=== PATIENT | male | born 1990 | race Caucasian/White ===

== ENCOUNTER 2017-08-23 10:09 | Inpatient (IN) | payer OTHER ==
[2017-08-23 11:13] VITALS: BMI 30.3
--- NOTE | 2017-08-23 11:57 | HP ---
CIWA Score - CIWA Score Nausea/Vomitin-Mild Nausea/No Vomiting Muscle Tremors: 4-Moderate,w/Arms Extend Anxiety: 4-Mod. Anxious/Guarded Agitation: 1-Slight > Activity Paroxysmal Sweats: 1-Minimal Palms Moist Orientation: 0-Oriented Tacttile Disturbances: 1-Very Mild Itch/Numbness Auditory Disturbances: 1-Very Mild Visual Disturbances: 1-Very Mild Sensitivity Headache: 1-Very Mild CIWA-Ar Total Score: 15 Admission ROS BHS - HPI Chief Complaint: I want to stop, I need help Allergies/Adverse Reactions: Allergies Allergy/AdvReac Type Severity Reaction Status Date / Time aspirin Allergy Intermediate Swelling Verified 08/23/17 12:01 ibuprofen [From Motrin] Allergy Intermediate Swelling Verified 08/23/17 12:01 History of Present Illness: 27 yo gentleman here for detox from alcohol, also using PCP, cocaine and cannabis. Denies seizures. Last detox two months ago at [facility]. Exam Limitations: Clinical Condition - Ebola screening Have you traveled outside of the country in the last 21 days: No Have you had contact with anyone from an Ebola affected area: No Have you been sick,other than usual withdrawal symptoms: No Do you have a fever: No - Review of Systems Constitutional: Loss of Appetite, Changes in sleep EENT: reports: Blurred Vision Respiratory: reports: No Symptoms reported Cardiac: reports: No Symptoms Reported GI: reports: Nausea, Indigestion : reports: Frequency Musculoskeletal: reports: No Symptoms Reported Integumentary: reports: No Symptoms Reported Neuro: reports: Headache Endocrine: reports: No Symptoms Reported Hematology: reports: No Symptoms Reported Psychiatric: reports: Judgement Intact, Mood/Affect Appropiate, Orientated x3, Anxious Other Systems: Reviewed and Negative Patient History - Patient Surgical History Past Surgical History: No - PPD History Previous Implant?: Yes Documented Results: Negative w/o proof PPD to be Administered?: Yes - Reproductive History Patient is a Female of Child Bearing Age (11 -55 yrs old): No (male) - Smoking Cessation Smoking history: Current every day smoker Have you smoked in the past 12 months: Yes Aproximately how many cigarettes per day: 10 Initiated information on smoking cessation: Yes 'Breaking Loose' booklet given: 08/23/17 - Substance & Tx. History Hx Alcohol Use: Yes Hx Substance Use: Yes Substance Use Type: Alcohol, Cocaine Hx Substance Use Treatment: Yes (detox, rehab) - Substances Abused Alcohol Route: Oral Frequency: Daily Amount used: liquor- 5 pints, beer- 2 six packs Age of first use: 12 Date of Last Use: 08/22/17 PCP Route: Smoking Frequency: Daily Amount used: 5 bags Age of first use: 16 Date of Last Use: 08/22/17 Cocaine Route: Inhalation Amount used: 1 bags Age of first use: 16 Date of Last Use: 08/22/17 Marijuana/Hashish Route: Smoking Frequency: Daily Amount used: 4 bags Age of first use: 16 Date of Last Use: 08/22/17 Family Disease History - Family Disease History Family Disease History: Diabetes: Mother (lviing - etoh), CA: Father (living - hx etoh), Other: Father, Mother, Brother (half brothers - etoh), Sister (two - healthy), Daughter (age 1 ) Admission Physical Exam [facility] - Vital Signs Vital Signs: Vital Signs - 24 hr 08/23/17 11:10 Temperature 97.4 F L Pulse Rate 83 Respiratory 20 Rate Blood Pressure 128/72 - Physical General Appearance: Yes: Nourished, Appropriately Dressed, Mild Distress, Anxious HEENTM: Yes: EOMI, Hearing grossly Normal, Normocephalic, Normal Voice, Pharynx Normal Respiratory: Yes: Normal Breath Sounds, No Respiratory Distress Neck: Yes: No masses,lesions,Nodules, Supple Breast: Yes: Breast Exam Deferred Cardiology: Yes: Regular Rhythm, Regular Rate Abdominal: Yes: Flat, Soft Genitourinary: Yes: Frequency Back: Yes: Normal Inspection Musculoskeletal: Yes: full range of Motion, Gait Steady Extremities: Yes: Normal Inspection, Normal Range of Motion Neurological: Yes: Fully Oriented, Alert, Motor Strength 5/5, Normal Mood/Affect , Normal Response Integumentary: Yes: Normal Color, Warm Lymphatic: Yes: Within Normal Limits - Diagnostic (1) Alcohol dependence with uncomplicated withdrawal Current Visit: Yes Status: Chronic (2) Cannabis dependence Current Visit: Yes Status: Chronic (3) PCP dependence Current Visit: Yes Status: Chronic (4) Cocaine dependence Current Visit: Yes Status: Chronic Qualifiers: Substance use status: uncomplicated Qualified Code(s): F14.20 - Cocaine dependence, uncomplicated (5) Nicotine dependence Current Visit: Yes Status: Chronic Qualifiers: Nicotine product type: cigarettes Substance use status: uncomplicated Qualified Code(s): F17.210 - Nicotine dependence, cigarettes, uncomplicated (6) Asthma Current Visit: Yes Status: Chronic Qualifiers: Asthma severity: mild Asthma persistence: intermittent Asthma complication type: uncomplicated Qualified Code(s): J45.20 - Mild intermittent asthma, uncomplicated Cleared for Admission BHS - Detox or Rehab S Level of Care: Medically Managed Detox Regimen/Protocol: Librium S Breath Alcohol Content Breath Alcohol Content: 0 Urine Drug Screen - Results Drug Screen Negative: No Urine Drug Screen Results: CASANDRA-Cocaine, PCP-Phencyclidine, TCA-Tricyclic Antidepress
[2017-08-23] MEDS ORDERED: MAGNESIUM HYDROX 2400MG/30ML ORAL SUSPENSION 30 ML CUP PO PRN (12:06)
[2017-08-23] MEDS ORDERED: MAG HYDROX/AL HYDROX/SIMETH 30 ML UNIT-DOSE CUP PO PRN (12:06)
[2017-08-23] MEDS ORDERED: guaiFENesin/D-METHORPHAN HB 10 ML UNIT-DOSE CUPS PO PRN (12:06)
[2017-08-23] MEDS ORDERED: ACETAMINOPHEN 325 MG TABLET (FP) PO PRN (12:06)
[2017-08-23] MEDS ORDERED: LOPERAMIDE HCL 2 MG CAPSULE PO PRN (12:06)
[2017-08-23] MEDS ORDERED: MENTHOL/PHENOL 1 EACH UD MM PRN (12:06)
[2017-08-23] MEDS ORDERED: hydrOXYzine PAMOATE 50 MG CAPSULE (FP) PO PRN (12:06)
[2017-08-23] MEDS ORDERED: MAGNESIUM CITRATE 300 ML BOTTLE PO PRN (12:06)
[2017-08-23] MEDS ORDERED: chlordiazePOXIDE HCL 25 MG CAPSULE PO PRN (12:06)
[2017-08-23] MEDS ORDERED: P-EPHED 60MG/TRIPROLIDI 2.5MG TABLET PO PRN (12:06)
[2017-08-23] MEDS ORDERED: ALBUTEROL SO4 18 GM HFA INHALER IH PRN (12:08)
[2017-08-23] MEDS ORDERED: chlordiazePOXIDE HCL 25 MG CAPSULE PO ONE (13:00)
[2017-08-23] MEDS: NICOTINE 21 MG/24 HOURS TOPICAL PATCH TD SCH (13:52)
[2017-08-23] MEDS: chlordiazePOXIDE HCL 25 MG CAPSULE PO SCH ×2 (17:27→22:44)
[2017-08-23 19:45] LABS: URINE APPEARANCE CLEAR; URINE BILIRUBIN NEGATIVE (NEGATIVE); URINE BLOOD NEGATIVE (NEGATIVE); URINE COLOR YELLOW; URINE GLUCOSE (UA) NEGATIVE (NEGATIVE); URINE KETONE NEGATIVE (NEGATIVE); URINE NITRITE NEGATIVE (NEGATIVE); URINE PROTEIN NEGATIVE (NEGATIVE); URINE UROBILINOGEN NEGATIVE mg/dL (0.2-1.0)
[2017-08-23 21:37] LABS: URINE LEUK ESTERASE Negative (NEGATIVE)
[2017-08-23] MEDS: THIAMINE HCL 100 MG TABLET (FP) PO SCH (22:44)
[2017-08-24] MEDS: chlordiazePOXIDE HCL 25 MG CAPSULE PO SCH ×4 (06:16→22:13)
--- NOTE | 2017-08-24 07:49 | CONSULT ---
[facility] Psychiatric Consult - Data Date of interview: 08/24/17 Admission source: [facility] Identifying data: Mr Leavitt is a 27 years old male, father of one year old daughter, unemployed with no source of income, domiciled living with his mother Substance Abuse History: Reports history of alcohol, cocaine, marijuana and pcp use. Refer to addiction counselor's note for further information Medical History: Significant for bronchial asthma and hyperlipidemia. Smokes 10 cigarettes daily Psychiatric History: Reports that his first psychiatric contact was in 2012 [address] he was admitted to [facility] where he was brought for pcp intoxication. Claims he was diagnosed with Bipolar Disorder and prescribed medications. He currently receives outpatient psychiatric treatment at [facility] under the care of Dr Esteban and he is prescribed Gabapentin 300 mg po TID, Trileptal 300 mg po daily and Seroquel 200 mg po HS. Denies history of suicidal attempt. At present, reports feeling well but sleeping poorly without medication Physical/Sexual Abuse/Trauma History: Denies history of verbal, physical or sexual abuse as well as DV relationship Additional Comment: Reports history of few misdemeanor arrests on charges of trespassing and possession of marijuana Mental Status Exam - Mental Status Exam Alert and Oriented to: Place, Person Cognitive Function: Fair Patient Appearance: Well Groomed Mood: Hopeful, Euthymic Patient Behavior: Cooperative Speech Pattern: Clear Voice Loudness: Normal Thought Process: Intact, Goal Oriented Hallucinations: Denies Suicidal Ideation: Denies Homicidal Ideation: Denies Insight/Judgement: Poor Sleep: Poorly Appetite: Good Muscle strength/Tone: Normal Gait/Station: Normal Psychiatric Findings - Problem List ([place] 1, 2,3) (1) Bipolar disorder Current Visit: Yes Status: Acute (2) Alcohol dependence with uncomplicated withdrawal Current Visit: Yes Status: Chronic (3) Cocaine dependence Current Visit: Yes Status: Chronic Qualifiers: Substance use status: uncomplicated Qualified Code(s): F14.20 - Cocaine dependence, uncomplicated (4) Cannabis dependence Current Visit: Yes Status: Chronic (5) Phencyclidine dependence Current Visit: Yes Status: Acute (6) Nicotine dependence Current Visit: Yes Status: Chronic Qualifiers: Nicotine product type: cigarettes Substance use status: uncomplicated Qualified Code(s): F17.210 - Nicotine dependence, cigarettes, uncomplicated (7) Asthma Current Visit: Yes Status: Chronic Qualifiers: Asthma severity: mild Asthma persistence: intermittent Asthma complication type: uncomplicated Qualified Code(s): J45.20 - Mild intermittent asthma, uncomplicated (8) HLD (hyperlipidemia) Current Visit: Yes Status: Acute - Initial Treatment Plan Initial Treatment Plan: 1) Continue Gabapentin 300 mg po TID, Trileptal 300 mg po daily and Seroquel 200 mg po HS. 2) Continue inpatient detoxification
[2017-08-24] MEDS ORDERED: OXcarbazepine 300 MG/5 ML 250 ML BULK BOTTLE PO SCH (10:00)
[2017-08-24] MEDS: PRENATAL VITAMINS W/ FOLIC ACID TABLET (FP) PO SCH (10:10)
[2017-08-24] MEDS: NICOTINE 21 MG/24 HOURS TOPICAL PATCH TD SCH (10:11)
[2017-08-24 10:30] LABS: MCH 29.1 pg (25.7-33.7); MEAN CELL VOLUME 88.4 fl (80-96); MEAN PLT VOLUME 9.3 fl (7.5-11.1); PLATELET COUNT 236 K/MM3 (134-434); RDW 14.2 % (11.9-15.9); WHITE BLOOD COUNT 6.3 K/mm3 (4.0-10.0)
[2017-08-24 10:42] LABS: ALBUMIN 2.7 g/dl (3.4-5.0); ANION GAP 4 (8-16); CALCIUM 7.8 mg/dL (8.5-10.1); CO2 31 mmol/L (21-32); GLUCOSE,RANDOM 79 mg/dL (74-106); SGOT/AST 26 U/L (15-37); SGPT/ALT 47 U/L (12-78)
[2017-08-24 10:43] LABS: ALK PHOS 71 U/L (45-117); BILIRUBIN,TOTAL 0.4 mg/dL (0.2-1.0); TOT PROT 6.4 g/dl (6.4-8.2)
[2017-08-24 11:00] LABS: HIV 1 & 2 AB NEGATIVE; HIV 1 AGp24 NEGATIVE
[2017-08-24] MEDS: GABAPENTIN 300 MG CAPSULE (FP) PO SCH ×2 (14:34→22:13)
[2017-08-24] MEDS: OXcarbazepine 300 MG TABLET (UD) PO SCH (14:34)
--- NOTE | 2017-08-24 16:47 | PN ---
S CIWA - CIWA Score Nausea/Vomitin Muscle Tremors: 4-Moderate,w/Arms Extend Anxiety: 4-Mod. Anxious/Guarded Agitation: 4-Moderately Restless Paroxysmal Sweats: 3 Orientation: 0-Oriented Tacttile Disturbances: 1-Very Mild Itch/Numbness Auditory Disturbances: 0-None Visual Disturbances: 0-None Headache: 1-Very Mild CIWA-Ar Total Score: 20 BHS Progress Note (SOAP) Subjective: Tremor, chills, sweating Objective: 08/24/17 16:47 Last Vital Signs Temp Pulse Resp BP Pulse Ox 96.8 F L 85 18 118/69 08/24/17 14:44 08/24/17 14:44 08/24/17 14:44 08/24/17 14:44 Laboratory Tests 08/23/17 08/24/17 08/24/17 16:10 07:15 07:15 WBC 6.3 RBC 5.56 Hgb 16.2 Hct 49.2 H MCV 88.4 MCH 29.1 MCHC 33.0 RDW 14.2 Plt Count 236 MPV 9.3 Sodium Potassium Chloride Carbon Dioxide Anion Gap BUN Creatinine Creat Clearance w eGFR Random Glucose Calcium Total Bilirubin AST ALT Alkaline Phosphatase Total Protein Albumin Urine Color Yellow Urine Appearance Clear Urine pH 5.0 Ur Specific [place] 1.019 Urine Protein Negative Urine Glucose (UA) Negative Urine Ketones Negative Urine Blood Negative Urine Nitrite Negative Urine Bilirubin Negative Urine Urobilinogen Negative Ur Leukocyte Esterase Negative RPR Titer HIV 1&2 Antibody Screen Negative HIV P24 Antigen Negative 08/24/17 08/24/17 07:15 07:15 WBC RBC Hgb Hct MCV MCH MCHC RDW Plt Count MPV Sodium 141 Potassium 4.1 Chloride 106 Carbon Dioxide 31 Anion Gap 4 L BUN 12 Creatinine 1.0 Creat Clearance w eGFR > 60 Random Glucose 79 Calcium 7.8 L Total Bilirubin 0.4 AST 26 ALT 47 Alkaline Phosphatase 71 Total Protein 6.4 Albumin 2.7 L Urine Color Urine Appearance Urine pH Ur Specific [place] Urine Protein Urine Glucose (UA) Urine Ketones Urine Blood Urine Nitrite Urine Bilirubin Urine Urobilinogen Ur Leukocyte Esterase RPR Titer Nonreactive HIV 1&2 Antibody Screen HIV P24 Antigen Labs noted Assessment: 08/24/17 16:49 Withdrawal symptoms Plan: Continue detox Encouraged to drink lots of water
[2017-08-24] MEDS: THIAMINE HCL 100 MG TABLET (FP) PO SCH (22:12)
[2017-08-24] MEDS: QUEtiapine FUMARATE 200 MG TABLET PO SCH (22:13)
[2017-08-25] MEDS: GABAPENTIN 300 MG CAPSULE (FP) PO SCH ×3 (06:04→22:11)
[2017-08-25] MEDS: chlordiazePOXIDE HCL 25 MG CAPSULE PO SCH ×2 (06:05→10:15)
--- NOTE | 2017-08-25 09:30 | EKG ---
Test Reason : Blood Pressure : / mmHG Vent. Rate : 070 BPM Atrial Rate : 070 BPM P-R Int : 172 ms QRS Dur : 102 ms QT Int : 392 ms P-R-T Axes : 059 079 065 degrees QTc Int : 423 ms NORMAL SINUS RHYTHM NORMAL ECG NO PREVIOUS ECGS AVAILABLE Confirmed by ALAYNA DIOR, DEBORA ([id number]) on 08/25/2017 9:30:30 AM Referred By: KARRIE FINE Confirmed By:DEBORA CATALAN MD
[2017-08-25] MEDS: PRENATAL VITAMINS W/ FOLIC ACID TABLET (FP) PO SCH (10:15)
[2017-08-25] MEDS: NICOTINE 21 MG/24 HOURS TOPICAL PATCH TD SCH (10:15)
[2017-08-25] MEDS: OXcarbazepine 300 MG TABLET (UD) PO SCH (10:34)
--- NOTE | 2017-08-25 10:48 | PN ---
[facility] CIWA - CIWA Score Nausea/Vomitin-No Nausea/No Vomiting Muscle Tremors: 3 Anxiety: 4-Mod. Anxious/Guarded Agitation: 4-Moderately Restless Paroxysmal Sweats: 1-Minimal Palms Moist Orientation: 0-Oriented Tacttile Disturbances: 0-None Auditory Disturbances: 0-None Visual Disturbances: 0-None Headache: 0-None Present CIWA-Ar Total Score: 12 BHS Progress Note (SOAP) Subjective: ANXIETY,SWEATS. ALERT O X 3. OOB. NAD. Objective: 08/25/17 10:47 Vital Signs Temperature 96.9 F L 08/25/17 09:23 Pulse Rate 103 H 08/25/17 09:23 Respiratory Rate 18 08/25/17 09:23 Blood Pressure 121/76 08/25/17 09:23 O2 Sat by Pulse Oximetry (%) Laboratory Last Values WBC 6.3 K/mm3 (4.0-10.0) 08/24/17 07:15 RBC 5.56 M/mm3 (4.00-5.60) 08/24/17 07:15 Hgb 16.2 GM/dL (11.7-16.9) 08/24/17 07:15 Hct 49.2 % (35.4-49) H 08/24/17 07:15 MCV 88.4 fl (80-96) 08/24/17 07:15 MCH 29.1 pg (25.7-33.7) 08/24/17 07:15 MCHC 33.0 g/dl (32.0-35.9) 08/24/17 07:15 RDW 14.2 % (11.9-15.9) 08/24/17 07:15 Plt Count 236 K/MM3 (134-434) 08/24/17 07:15 MPV 9.3 fl (7.5-11.1) 08/24/17 07:15 Sodium 141 mmol/L (136-145) 08/24/17 07:15 Potassium 4.1 mmol/L (3.5-5.1) 08/24/17 07:15 Chloride 106 mmol/L (98-107) 08/24/17 07:15 Carbon Dioxide 31 mmol/L (21-32) 08/24/17 07:15 Anion Gap 4 (8-16) L 08/24/17 07:15 BUN 12 mg/dL (7-18) 08/24/17 07:15 Creatinine 1.0 mg/dL (0.7-1.3) 08/24/17 07:15 Creat Clearance w eGFR > 60 (>60) 08/24/17 07:15 Random Glucose 79 mg/dL (74-106) 08/24/17 07:15 Calcium 7.8 mg/dL (8.5-10.1) L 08/24/17 07:15 Total Bilirubin 0.4 mg/dL (0.2-1.0) 08/24/17 07:15 AST 26 U/L (15-37) 08/24/17 07:15 ALT 47 U/L (12-78) 08/24/17 07:15 Alkaline Phosphatase 71 U/L (45-117) 08/24/17 07:15 Total Protein 6.4 g/dl (6.4-8.2) 08/24/17 07:15 Albumin 2.7 g/dl (3.4-5.0) L 08/24/17 07:15 Urine Color Yellow 08/23/17 16:10 Urine Appearance Clear 08/23/17 16:10 Urine pH 5.0 (5.0-8.0) 08/23/17 16:10 Ur Specific [place] 1.019 (1.001-1.035) 08/23/17 16:10 Urine Protein Negative (NEGATIVE) 08/23/17 16:10 Urine Glucose (UA) Negative (NEGATIVE) 08/23/17 16:10 Urine Ketones Negative (NEGATIVE) 08/23/17 16:10 Urine Blood Negative (NEGATIVE) 08/23/17 16:10 Urine Nitrite Negative (NEGATIVE) 08/23/17 16:10 Urine Bilirubin Negative (NEGATIVE) 08/23/17 16:10 Urine Urobilinogen Negative mg/dL (0.2-1.0) 08/23/17 16:10 Ur Leukocyte Esterase Negative (NEGATIVE) 08/23/17 16:10 RPR Titer Nonreactive (NONREACTIVE) 08/24/17 07:15 HIV 1&2 Antibody Screen Negative 08/24/17 07:15 HIV P24 Antigen Negative 08/24/17 07:15 Assessment: 08/25/17 10:47 WITHDRAWAL SX Plan: CONTINUE DETOX
[2017-08-25] MEDS: chlordiazePOXIDE 5 MG CAPSULE PO SCH ×2 (17:22→22:11)
[2017-08-25] MEDS: THIAMINE HCL 100 MG TABLET (FP) PO SCH (22:11)
[2017-08-25] MEDS: QUEtiapine FUMARATE 200 MG TABLET PO SCH (22:11)
[2017-08-26] MEDS: chlordiazePOXIDE 5 MG CAPSULE PO SCH ×2 (05:43→10:18)
[2017-08-26] MEDS: GABAPENTIN 300 MG CAPSULE (FP) PO SCH ×3 (05:43→22:15)
[2017-08-26] MEDS: NICOTINE 21 MG/24 HOURS TOPICAL PATCH TD SCH (10:18)
[2017-08-26] MEDS: OXcarbazepine 300 MG TABLET (UD) PO SCH (10:18)
[2017-08-26] MEDS: PRENATAL VITAMINS W/ FOLIC ACID TABLET (FP) PO SCH (10:18)
--- NOTE | 2017-08-26 11:18 | PN ---
BHS Progress Note (SOAP) Subjective: SLIGHT ANXIETY,SWEATS,FATIGUE. Objective: 08/26/17 11:17 Vital Signs Temperature 97.0 F L 08/26/17 10:24 Pulse Rate 90 08/26/17 10:24 Respiratory Rate 18 08/26/17 10:24 Blood Pressure 119/75 08/26/17 10:24 O2 Sat by Pulse Oximetry (%) Laboratory Last Values WBC 6.3 K/mm3 (4.0-10.0) 08/24/17 07:15 RBC 5.56 M/mm3 (4.00-5.60) 08/24/17 07:15 Hgb 16.2 GM/dL (11.7-16.9) 08/24/17 07:15 Hct 49.2 % (35.4-49) H 08/24/17 07:15 MCV 88.4 fl (80-96) 08/24/17 07:15 MCH 29.1 pg (25.7-33.7) 08/24/17 07:15 MCHC 33.0 g/dl (32.0-35.9) 08/24/17 07:15 RDW 14.2 % (11.9-15.9) 08/24/17 07:15 Plt Count 236 K/MM3 (134-434) 08/24/17 07:15 MPV 9.3 fl (7.5-11.1) 08/24/17 07:15 Sodium 141 mmol/L (136-145) 08/24/17 07:15 Potassium 4.1 mmol/L (3.5-5.1) 08/24/17 07:15 Chloride 106 mmol/L (98-107) 08/24/17 07:15 Carbon Dioxide 31 mmol/L (21-32) 08/24/17 07:15 Anion Gap 4 (8-16) L 08/24/17 07:15 BUN 12 mg/dL (7-18) 08/24/17 07:15 Creatinine 1.0 mg/dL (0.7-1.3) 08/24/17 07:15 Creat Clearance w eGFR > 60 (>60) 08/24/17 07:15 Random Glucose 79 mg/dL (74-106) 08/24/17 07:15 Calcium 7.8 mg/dL (8.5-10.1) L 08/24/17 07:15 Total Bilirubin 0.4 mg/dL (0.2-1.0) 08/24/17 07:15 AST 26 U/L (15-37) 08/24/17 07:15 ALT 47 U/L (12-78) 08/24/17 07:15 Alkaline Phosphatase 71 U/L (45-117) 08/24/17 07:15 Total Protein 6.4 g/dl (6.4-8.2) 08/24/17 07:15 Albumin 2.7 g/dl (3.4-5.0) L 08/24/17 07:15 Urine Color Yellow 08/23/17 16:10 Urine Appearance Clear 08/23/17 16:10 Urine pH 5.0 (5.0-8.0) 08/23/17 16:10 Ur Specific [place] 1.019 (1.001-1.035) 08/23/17 16:10 Urine Protein Negative (NEGATIVE) 08/23/17 16:10 Urine Glucose (UA) Negative (NEGATIVE) 08/23/17 16:10 Urine Ketones Negative (NEGATIVE) 08/23/17 16:10 Urine Blood Negative (NEGATIVE) 08/23/17 16:10 Urine Nitrite Negative (NEGATIVE) 08/23/17 16:10 Urine Bilirubin Negative (NEGATIVE) 08/23/17 16:10 Urine Urobilinogen Negative mg/dL (0.2-1.0) 08/23/17 16:10 Ur Leukocyte Esterase Negative (NEGATIVE) 08/23/17 16:10 RPR Titer Nonreactive (NONREACTIVE) 08/24/17 07:15 HIV 1&2 Antibody Screen Negative 08/24/17 07:15 HIV P24 Antigen Negative 08/24/17 07:15 Assessment: 08/26/17 11:17 DECREASED WITHDRAWAL SX Plan: CONTINUE DETOX
[2017-08-26] MEDS: chlordiazePOXIDE HCL 10 MG CAPSULE PO SCH ×2 (17:18→22:14)
[2017-08-26] MEDS: THIAMINE HCL 100 MG TABLET (FP) PO SCH (22:14)
[2017-08-26] MEDS: QUEtiapine FUMARATE 200 MG TABLET PO SCH (22:15)
[2017-08-27] MEDS: GABAPENTIN 300 MG CAPSULE (FP) PO SCH (06:00)
[2017-08-27] MEDS: chlordiazePOXIDE HCL 10 MG CAPSULE PO SCH (06:00)
[2017-08-27 09:53] VITALS: BP 118/73; PULSE 103; TEMP 96.4
--- NOTE | 2017-08-27 10:43 | DS ---
[facility] Detox Discharge Summary Admission Date: 08/23/17 Discharge Date: 08/27/17 - History Present History: Alcohol Dependence, Pcp Dependence Additional Comments: DETOX COMPLETED. ALERT O X 3. NAD. Pertinent Past History: ASTHMA HYPERLIPIDEMIA - Physical Exam Results Vital Signs: Vital Signs Temperature 96.4 F L 08/27/17 09:52 Pulse Rate 103 H 08/27/17 09:52 Respiratory Rate 16 08/27/17 09:52 Blood Pressure 118/73 08/27/17 09:52 O2 Sat by Pulse Oximetry (%) Pertinent Admission Physical Exam Findings: WITHDRAWAL SX - Treatment Hospital Course: Detox Protocol Followed, Detoxed Safely, Responded well, Discharged Condition Good - Medication Discharge Medications: Ambulatory Orders Albuterol Sulfate Inhaler - [Ventolin Hfa Inhaler -] 1 - 2 inh PO Q4H 08/23/17 Gabapentin [Neurontin -] 300 mg PO TID 08/23/17 Oxcarbazepine [Trileptal -] 150 mg PO BID 08/23/17 Quetiapine Fumarate [Seroquel -] 200 mg PO HS 08/23/17 - Diagnosis (1) Alcohol dependence with uncomplicated withdrawal Status: Acute (2) Asthma Status: Chronic Qualifiers: Asthma severity: mild Asthma persistence: intermittent Asthma complication type: uncomplicated Qualified Code(s): J45.20 - Mild intermittent asthma, uncomplicated (3) Cocaine dependence Status: Acute Qualifiers: Substance use status: uncomplicated Qualified Code(s): F14.20 - Cocaine dependence, uncomplicated (4) Nicotine dependence Status: Acute Qualifiers: Nicotine product type: cigarettes Substance use status: in withdrawal Qualified Code(s): F17.213 - Nicotine dependence, cigarettes, with withdrawal (5) Cannabis dependence Status: Acute (6) PCP dependence Status: Acute - AMA Did Patient Leave Against Medical Advice: No
== END 2017-08-27 10:41 | disposition home or self-care (01) | DRG 774 ==
LOC: YASAS 10:09 → Y3N 12:54
PROVIDERS: ADMIT Internal Medicine; ATTEND Internal Medicine
PROC: HZ2ZZZZ Detoxification Services for Substance Abuse Treatment (ICD-10-PCS; principal; 2017-08-23)
DX: F10.230 Alcohol dependence with withdrawal, uncomplicated (principal); F14.20 Cocaine dependence, uncomplicated; F12.20 Cannabis dependence, uncomplicated; F16.20 Hallucinogen dependence, uncomplicated; F17.210 Nicotine dependence, cigarettes, uncomplicated; F31.9 Bipolar disorder, unspecified; J45.20 Mild intermittent asthma, uncomplicated; E78.5 Hyperlipidemia, unspecified
CPT/HCPCS: 36415; 80053; 81003; 85027; 86593; 87389; 93005; 93010